=== PATIENT | female | born 1955 | race Caucasian/White ===

== ENCOUNTER 2017-03-11 06:30 | Day surgery (SDC) | payer MEDICAID ==
[2017-03-11] MEDS ORDERED: LIDOCAINE 1% 2 ML INJ ONE (06:48)
[2017-03-11] MEDS ORDERED: LIDOCAINE 1% 5 ML SDV ID PRN (07:20)
[2017-03-11] MEDS ORDERED: LR 1,000 ML IV ONE (07:20)
[2017-03-11] MEDS ORDERED: MIDAZOLAM 2 MG/2 ML VIAL ONE (08:08)
[2017-03-11] MEDS ORDERED: PROPRANOLOL HCL 1 MG/ML VIAL ONE (08:08)
[2017-03-11] MEDS ORDERED: PROPOFOL 200 MG/20 ML VIAL ONE ×3 (08:08→08:39)
--- NOTE | 2017-03-11 09:15 | GOP ---
[f rep st] OPERATIVE REPORT DATE OF OPERATION: SURGEON: Black Munoz MD ANESTHESIA: Monitored anesthesia care. PREOPERATIVE DIAGNOSIS: History of colon polyps. POSTOPERATIVE DIAGNOSIS: Colon polyps. PROCEDURE PERFORMED: Colonoscopy with snare colonoscopy with biopsy. FINDINGS: 1. Colon polyps, status post removal. Possible residual polyp in the sigmoid colon which is locate d near the tattoo site, status post removal. 1. [id number] left-sided diverticulosis. INDICATIONS: The patient is a 62-year-old female, who underwent her first colonoscopy in September, which showed multiple colon polyps. She had a large 15 cm polyp in the sigmoid colon, 15 cm from the anal verge. A tattoo was placed at the site. It was possibly adherent to the adjacent wa ll. Is here today for followup. DESCRIPTION OF PROCEDURE: The adult colonoscope was advanced into the terminal ileum, which appeare d normal. The ileocecal valve appears normal. The ascending colon and cecum were normal. There wa s one 2 mm polyp in the ascending colon, removed using cold biopsy forceps. The hepatic flexure and transverse colon were normal. The descending colon showed 3 small 2 mm polyps, which were removed using cold biopsy forceps off to pathology. In the sigmoid colon, again at approximately 15 cm from the anal verge, there is a tattoo site. There is a semipedunculated polyp measuring approximately 9 mm. This may be a residual polyp from her prior polypectomy site. The area and polyp were remove d using hot snare polypectomy technique. Moderate left-sided diverticulosis was seen. Retroflexed views in the rectum were normal. RECOMMENDATIONS: 1. Advance diet as tolerated. 2. Discharged to home with escort. 3. Follow up the final pathology results. Results will be available within 10 days. 4. Repeat colonoscopy in 6 months at the hospital for possible APC and relook at the sigmoid colon polypectomy site. Thank you for allowing me to participate in the care of your patient. Please do not hesitate to judson l with questions. /[id number]/MODL
[2017-03-11] MEDS ORDERED: LIDOCAINE 2% 5 ML SDV ONE (09:24)
== END 2017-03-11 10:25 | disposition home or self-care (01) ==
LOC: FSGY 06:30
PROVIDERS: ATTEND Internal Medicine Gastroenterology
PROC: 0DBN8ZX Excision of Sigmoid Colon, Via Natural or Artificial Opening Endoscopic, Diagnostic (ICD-10-PCS; principal; 2017-03-11 08:00)
PROC: 0DBK7ZX Excision of Ascending Colon, Via Natural or Artificial Opening, Diagnostic (ICD-10-PCS; principal; 2017-03-11 08:00)
PROC: 0DJD8ZZ Inspection of Lower Intestinal Tract, Via Natural or Artificial Opening Endoscopic (ICD-10-PCS; principal; 2017-03-11 08:00)
PROC: 0DBM7ZX Excision of Descending Colon, Via Natural or Artificial Opening, Diagnostic (ICD-10-PCS; principal; 2017-03-11 08:00)
DX: D12.4 Benign neoplasm of descending colon (principal); K63.5 Polyp of colon; K57.30 Diverticulosis of large intestine without perforation or abscess without bleeding
CPT/HCPCS: J1800; J2250; J2704

== ENCOUNTER → 2018-08-03 | Outpatient (CLI) | payer MEDICAID | LOC: BMCIMAGING 12:19 | PROVIDERS: ATTEND Nurse Practitioner Adult Health | DX: Z12.31 Encounter for screening mammogram for malignant neoplasm of breast (principal) ==